=== PATIENT | male | born 1970 | race Caucasian/White ===

== ENCOUNTER 2016-12-20 14:30 | Emergency (ER) | payer MEDICAID ==
[~2016-12-20] VITALS: Ht 177.8 cm; Wt 181.4 kg
[~2016-12-20 14:30] MED LIST: CEPH-568 PO; DOXY-4 PO
[2016-12-20 14:35] VITALS: BP 132/74; PULSE 81; RESP 20; TEMP 97.8; O2SAT 85; O2SAT 98
--- NOTE | 2016-12-20 14:38 | NUR ---
Pt placed to ER bed 04. Report given to REBECA Norton and Dr. Seymour.
--- NOTE | 2016-12-20 14:48 | NUR ---
ER at bedside examining patient.
--- NOTE | 2016-12-20 14:51 | NUR ---
c/o bilateral lower extrmieties swelling over 3 years.pain getting worse. ,lower legs are swelling and red noted,no skin break down.
--- NOTE | 2016-12-20 15:05 | NUR ---
accu-check 125,Dr angulo informed
[2016-12-20] MEDS ORDERED: KETOROLAC TROMETHAMINE 60 MG/2 ML VIAL IM ONE (15:30)
[2016-12-20] MEDS ORDERED: SULFAMETHOXAZOLE/TRIMETHOPR DS 1 TABLET PO ONE (15:30)
[2016-12-20 15:35] VITALS: BP 136/88; PULSE 76; RESP 20; TEMP 97.4; O2SAT 100
--- NOTE | 2016-12-20 15:35 | NUR ---
Patient given written and verbal discharge instructions and verbalizes understanding. ER MD discussed with patient the results and treatment provided. Patient in stable condition. ID arm band removed. Rx of Bactrim, Motrin, Hydrochlorothiazide, Tramadol given. Patient educated on pain management and to follow up with PMD. Pain Scale 2/10, tolerable. Opportunity for questions provided and answered.
== END 2016-12-20 15:35 | disposition home or self-care (01) ==
LOC: SED 14:30
DX: L03.116 Cellulitis of left lower limb (principal); L03.115 Cellulitis of right lower limb; R03.0 Elevated blood-pressure reading, without diagnosis of hypertension
CPT/HCPCS: 82962; 96372; 99283; J1885